=== PATIENT | female | born 1970 | race Caucasian/White ===

== ENCOUNTER 2016-06-16 11:19 | Emergency (ER) | payer BC ==
[2016-06-16 11:26] VITALS: BP 132/76
--- NOTE | 2016-06-16 11:37 | ER Document Report ---
ED Medical Screen (RME) - General Stated Complaint: NECK PAIN Time seen by provider: 11:34 Mode of Arrival: Ambulatory Information source: Patient Notes: 45-year-old female presents to ED for pain in her neck with numbness going down both shoulders and a prickly feeling down her arms for the last 3 days. States she has not had any injury that she knows of. I have greeted and performed a rapid initial assessment of this patient. A comprehensive ED assessment and evaluation of the patient, analysis of test results and completion of medical decision making process will be conducted by an additional ED providers. TRAVEL OUTSIDE OF THE [place] IN LAST 30 DAYS: No - Related Data Allergies/Adverse Reactions: carisoprodol [From Soma] Allergy (Verified 01/01/16 18:24) tramadol [From Ultram] Allergy (Verified 01/01/16 18:24) Past Medical History - Past Medical History Cardiac Medical History: Reports: Hx Hypertension Endocrine Medical History: Reports: Hx Hypothyroidism GI Medical History: Reports: Hx Gastroesophageal Reflux Disease Musculoskeltal Medical History: Reports Hx Musculoskeletal Trauma Psychiatric Medical History: Reports: Hx Anxiety Past Surgical History: Reports: Hx Oral Surgery - [place] teeth Physical Exam - Vital signs Vitals: Temp Pulse Resp BP Pulse Ox 97.7 F 90 20 132/76 H 98 06/16/16 11:25 06/16/16 11:25 06/16/16 11:25 06/16/16 11:25 06/16/16 11:25 Course - Vital Signs Vital signs: Temp Pulse Resp BP Pulse Ox 97.7 F 90 20 132/76 H 98 06/16/16 11:25 06/16/16 11:25 06/16/16 11:25 06/16/16 11:25 06/16/16 11:25
--- NOTE | 2016-06-16 11:59 | ER Document Report ---
HPI - HPI Patient complains to provider of: upper back pain Onset: Other - 2-3 days Onset/Duration: Persistent Quality of pain: Achy Severity: Severe Pain Level: 4 Context: Patient presents emergency department with complaints of upper back pain for 2- 3 days that radiates down both arms and at times makes her arms feel numb or tingling. She denies injury. She reports she works at [employer]. She denies pmh or recent trauma. She denies other symptoms such as fever vomiting diarrhea. She reports it hurts the most when she turns her head to the right. Associated Symptoms: None Exacerbated by: Movement Relieved by: Denies Similar symptoms previously: No Recently seen / treated by doctor: No - REPRODUCTIVE Reproductive: DENIES: : - DERM Skin Color: Normal Past Medical History - General Information source: Patient Last Menstrual Period: years - Social History Smoking Status: Never Smoker Chew tobacco use (# tins/day): No Frequency of alcohol use: Occasional Drug Abuse: None Occupation: [employer] Lives with: Family Family History: Arthritis, CAD, Hyperlipidemia, Hypertension, Malignancy, Thyroid Disfunction Patient has suicidal ideation: No Patient has homicidal ideation: No - Past Medical History Cardiac Medical History: Reports: Hx Hypertension Endocrine Medical History: Reports: Hx Hypothyroidism Renal/ Medical History: Denies: Hx Peritoneal Dialysis GI Medical History: Reports: Hx Gastroesophageal Reflux Disease Musculoskeltal Medical History: Reports Hx Musculoskeletal Trauma Psychiatric Medical History: Reports: Hx Anxiety, Hx Depression Past Surgical History: Reports: Hx Oral Surgery - [place] teeth, Hx Tubal Ligation Vertical Provider Document - CONSTITUTIONAL Agree With Documented VS: Yes Exam Limitations: No Limitations General Appearance: WD/WN, Mild Distress - winces when turning head - INFECTION CONTROL TRAVEL OUTSIDE OF THE [place] IN LAST 30 DAYS: No - HEENT HEENT: Atraumatic, Normal ENT Exam, Normocephalic, PERRLA. negative: Pharyngeal Erythema, Tympanic Membrane Red, Tympanic Membrane Bulging - NECK Neck: Normal Inspection - Denies vertebral tenderness No obvious deformity or swelling no erythema good distal movement and sensation. 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 Course - Re-evaluation Re-evalutation: 06/16/16 Patient instructed on medications. Patient also instructed on heat warm packs for pain and follow-up with her primary care provider for continued pain. Suggested massage. Patient verbalized understanding to all instructions. No neuro deficits noted patient discharged home - Vital Signs Vital signs: Temp Pulse Resp BP Pulse Ox 97.7 F 90 20 132/76 H 98 06/16/16 11:25 06/16/16 11:25 06/16/16 11:25 06/16/16 11:25 06/16/16 11:25 Discharge - Discharge Clinical Impression: Upper back pain, Elevated blood pressure reading Condition: Stable Disposition: HOME, SELF-CARE Instructions: Muscle Relaxers ([facility]), Muscle Strain ([facility]), Oral Narcotic Medication ([facility]), Family Physicians / Practices, Warm Packs ([facility]) Additional Instructions: *You have been evaluated for upper back strain, with a blood pressure reading *Take medication as prescribed *Warm packs as discussed, massage *Follow up with a primary care provider within one week for recheck *Monitor your blood pressure. Your blood pressure was elevated today. This may be because you were anxious, in pain or because you need medication. It is important to follow up with your primary care provider for full evaluation. *Return to ED for worsening condition, changes, needs Prescriptions: Cyclobenzaprine HCl [Flexeril 10 Mg Tablet] 10 mg PO TID #30 tablet Hydrocodone/Acetaminophen [[place] 5-325 Tablet] 1 each PO QID #15 tablet Forms: Elevated Blood Pressure, Return to Work
== END 2016-06-16 12:10 | disposition home or self-care (01) ==
LOC: ER 11:19
DX: M54.89 Other dorsalgia (principal); I10 Essential (primary) hypertension
CPT/HCPCS: 99283